=== PATIENT | female | born 1970 | race Two or more races ===

== ENCOUNTER 2021-07-09 15:02 | Emergency (ER) | payer OTHER ==
[~2021-07-09] VITALS: Ht 162.6 cm; Wt 65.3 kg
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
[2021-07-09] MEDS ORDERED: MORPHINE SULFATE INJ 4 MG/ML DISP.SYRIN ONE (15:28)
[2021-07-09] MEDS ORDERED: MORPHINE SULFATE INJ 2 MG/ML DISP.SYRIN IM ONE (15:30)
--- NOTE | 2021-07-09 16:01 | NUR ---
DAUGHTER ISAIAH [phone] AT BEDSIDE
--- NOTE | 2021-07-09 16:30 | NUR ---
CALLED RADIOLOGY TO FOLLOW UP SCAN
[2021-07-09] MEDS ORDERED: IBUP-1957 PO (17:44)
--- NOTE | 2021-07-09 17:52 | NUR ---
Patient discharged to home in stable condition. Written and verbal after care instructions given. Patient verbalizes understanding of instruction.
[2021-07-09 17:53] VITALS: BP 122/68
== END 2021-07-09 17:53 | disposition home or self-care (01) ==
LOC: ER 16:06
DX: S30.1XXA Contusion of abdominal wall, initial encounter (principal); E78.00 Pure hypercholesterolemia, unspecified; V47.5XXA Car driver injured in collision with fixed or stationary object in traffic accident, initial encounter; Y93.89 Activity, other specified; Y92.89 Other specified places as the place of occurrence of the external cause; Y99.8 Other external cause status
CPT/HCPCS: 71045; 74176; 96372; 99284; J2270